=== PATIENT | female | born 1960 | race Caucasian/White ===

== ENCOUNTER 2024-06-12 13:42 | Outpatient (CLI) | payer MEDICARE, BC, SELFPAY ==
--- NOTE | 2024-06-12 13:45 | MR_ITS ---
[facility] [address] [facility] [address] Phone:?[phone] Fax:?[phone] Referring Physician Information: Zechariah Zayas M.D. [id number] [address] Phone:?[phone] Fax:?[phone] Patient:Peewee Kramer D.O.B:?1960 Sex:?Female Phone:?[phone] [facility] MRN:?[id number] Exam Date:?06/12/2024 EXAM: MRI of the LEFT SHOULDER WITHOUT CONTRAST CLINICAL HISTORY: Ongoing left shoulder pain. Evaluate for rotator cuff tear. COMPARISONS: None available. TECHNICAL: MRI sequences of the left shoulder: Axials: PD, T2 Coronals: PD, T2FS, T2 Sagittals: PD, T2 SEDATION: None CONTRAST: None FINDINGS: Bones: No fracture or suspicious bone marrow signal abnormality. Coracoacromial arch: Acromion: No os acromiale. Type I-II acromion. Acromiohumeral space: The bony distance is unremarkable. Acromioclavicular joint: No acute injury, arthropathy, or inferior hypertrophy. Coracoclavicular ligament: The coracoclavicular ligament is intact. Rotator cuff muscles/tendons: Supraspinatus: 1.2 x 1.2 cm greater than 50% partial-thickness bursal sided tear of the supraspinatus tendon insertion contacting the cortical insertional surface. No disproportionate muscular atrophy in the setting of mild diffuse muscular atrophy. Infraspinatus: Mild tendinopathy. No muscular atrophy. Teres minor: The teres minor tendon and muscle are intact. Subscapularis: 1.7 cm in craniocaudad dimension greater than 50% partial- thickness undersurface tear of the subscapularis tendon with maximal retraction of torn undersurface fibers medial to the level of the glenoid. Marked atrophy of the superior portion of the subscapularis muscle. Labrum and glenohumeral joint: No evidence of labral tear although evaluation is suboptimal because of nonarthrogram technique. Physiologic amount of joint fluid. No discrete chondral defect or subchondral bone marrow edema/cystic change is seen. No convincing evidence of capsular edema or thickening although evaluation is suboptimal because of lack of joint distention. Proximal biceps tendon, long head and short heads: Intra-articular medial dislocation of the proximal long head of the biceps tendon from the bicipital groove. The short head is intact. Bursae: Subacromial/subdeltoid: Moderate bursitis. Subcoracoid: No convincing subcoracoid bursal thickening/bursitis. IMPRESSION: 1. 1.2 x 1.2 cm greater than 50% partial-thickness bursal sided tear of the supraspinatus tendon insertion contacting the cortical insertional surface. No disproportionate muscular atrophy in the setting of mild diffuse muscular atrophy. 2. 1.7 cm in craniocaudad dimension greater than 50% partial-thickness undersurface tear of the subscapularis tendon with maximal retraction of torn undersurface fibers medial to the level of the glenoid. Marked atrophy of the superior portion of the subscapularis muscle. 3. Intra-articular medial dislocation of the proximal long head of the biceps tendon from the bicipital groove. 4. Mild infraspinatus tendinopathy. 5. Moderate subacromial/subdeltoid bursitis. RCB Electronically signed on 06/13/2024 8:54:00 AM by Yeison Magallon M.D.
== END 2024-06-12 13:43 | disposition home or self-care (01) ==
LOC: MRI 13:47
PROVIDERS: PCP Family Medicine; Visit Provider Orthopaedic Surgery
DX: M25.512 Pain in left shoulder (principal); M75.102 Unspecified rotator cuff tear or rupture of left shoulder, not specified as traumatic; M75.52 Bursitis of left shoulder
CPT/HCPCS: 73221